=== PATIENT | female | born 1955 | race Caucasian/White ===

== ENCOUNTER → 2016-09-02 | Day surgery (SDC) | payer BC ==
[2016-08-23 09:01] VITALS: BMI 22.0
[~2016-09-02] VITALS: Ht 157.5 cm; Wt 54.5 kg
[~2016-09-02] MED LIST: ASPI81TA28 PO; CALC600T9 PO; FLAX12003 PO; LIDOCAINE HCL 2% 2 ML VIAL (20MG/ML) ONE; MULT-506 PO; ONDANSETRON INJ 2 MG/ML 2 ML VIAL ONE; PROPOFOL IV EMULSION 10 MG/ML 20 ML VIAL IV ONE; SODIUM CHLORIDE 0.9% 500ML 500 ML IV ONE; [UNRECOGNIZED DRUG - OTHER] PO
[2016-09-02 10:20] VITALS: Ht 157.5 cm; Wt 54.5 kg
--- NOTE | 2016-09-02 10:40 | Endo History and Physical ---
History & Physical Date of Service: Sep 02, 2016. Chief Complaint: screening Referring Physician: Dr. Freire History of Present Illness 61 yo CF who presents for screening colonoscopy. Past Surgical History Hx Cardiac Surgery: No Hx Internal Defibrillator: No Hx Pacemaker: No Hx Abdominal Surgery: Yes (TUBAL LIGATION, PARTIAL D&C) Hx of Implantable Prosthesis: No Hx Post-Op Nausea and Vomiting: No Hx Cancer Surgery: No Hx Thoracic Surgery: No Hx Orthopedic: No Hx Urinary Tract Surgery: No Family History IBD Social History Smoking Status: Never Smoker Hx Substance Use: No Hx Alcohol Use: No Allergies Coded Allergies: Erythromycin (Verified Allergy, Unknown, SWELLING AT LOCAL INJECTION SITE , 09/02/16) Gabapentin (Verified Allergy, Unknown, SLEEPINESS, 08/23/16) Oxcarbazepine (Verified Allergy, Unknown, SHUT DOWN KIDNEY FUNCTION, ) Scallop (Verified Allergy, Unknown, ANAPHYLAXIS, 09/02/16) Topiramate (Unverified Allergy, Unknown, PT UNSURE REACTION, 08/23/16) Valproic Acid (Verified Allergy, Unknown, SLEEPINESS, 08/23/16) Uncoded Allergies: DEPACOT (Allergy, Unknown, swelling and rash, 09/02/16) Current Medications Reported Home Medications Medications Dose Route/Sig Max Daily Dose Days Date Category [Clarkpina Layton] 1 Tab PO BID 08/23/16 Reported Multivitamin (Multivitamins) Tab 1 Tab PO QAM 08/23/16 Reported Flaxseed Oil (Flaxseed (Linseed)) 1 Cap Cap 1 Cap PO QAM 08/23/16 Reported Calcium + D (Calcium Carbonate-Vitamin D) 1 Tab Tab 1 Tab PO QAM 08/23/16 Reported Aspirin Ec (Aspirin) 81 Mg Tab 81 Mg PO QAM 08/23/16 Reported Vital Signs Weight (Kilograms): 54.55 Height (Feet): 5 Height (Inches): 2 Date Time Temp Pulse Resp B/P Pulse Ox O2 Delivery O2 Flow Rate FiO2 09/02/16 10:28 36.7 69 20 103/61 99 Room Air Physical Exam General Appearance: WD/WN, no apparent distress Respiratory/Chest: Auscultation: breath sounds normal Cardiovascular: Heart Auscultation: RRR Abdomen: Bowel Sounds: normal Inspection & Palpation: soft, non-distended, no tenderness, guarding & rebound Assessment and Plan Assessment: 61 yo CF who presents for screening colonoscopy. Plan: Proceed with colonoscopy.
--- NOTE | 2016-09-02 11:08 | GI REPORT ---
Procedure Date: 09/02/2016 10:41 AM Procedure: Colonoscopy Indications: Screening for colorectal malignant neoplasm Medicines: Monitored Anesthesia Care Complications: No immediate complications. Estimated Blood Loss: Estimated blood loss: none. Procedure: Pre-Anesthesia Assessment: - Prior to the procedure, a History and Physical was performed, and patient medications and allergies were reviewed. The patient's tolerance of previous anesthesia was also reviewed. The risks and benefits of the procedure and the sedation options and risks were discussed with the patient. All questions were answered, and informed consent was obtained. Prior Anticoagulants: The patient has taken aspirin, last dose was 1 day prior to procedure. ASA Grade Assessment: II - A patient with mild systemic disease. After reviewing the risks and benefits, the patient was deemed in satisfactory condition to undergo the procedure. After I obtained informed consent, the scope was passed under direct vision. Throughout the procedure, the patient's blood pressure, pulse, and oxygen saturations were monitored continuously. The Scope was introduced through the anus and advanced to the terminal ileum. The colonoscopy was performed without difficulty. The patient tolerated the procedure well. The quality of the bowel preparation was good. The terminal ileum, ileocecal valve, appendiceal orifice, and rectum were photographed. Findings: A 6 mm polyp was found in the ascending colon. The polyp was sessile. The polyp was removed with a hot snare. Resection and retrieval were complete. Impression: - One 6 mm polyp in the ascending colon, removed with a hot snare. Resected and retrieved. Recommendation: - Resume previous diet. - Continue present medications. - Repeat colonoscopy for surveillance based on pathology results. - Return to primary care physician as previously scheduled. Sarthak Alonzo, DO 09/02/2016 11:08:12 AM This report has been signed electronically. Note Initiated On: 09/02/2016 10:41 AM I attest to the content of the Intraoperative Record and orders documented therein, exceptions below
--- NOTE | 2016-09-02 11:09 | Discharge Instructions ---
Endoscopy Patient Instructions Date / Procedure(s) Performed Sep 02, 2016. Colonoscopy Allergy Information Coded Allergies: Erythromycin (Verified Allergy, Unknown, SWELLING AT LOCAL INJECTION SITE , 09/02/16) Gabapentin (Verified Allergy, Unknown, SLEEPINESS, 08/23/16) Oxcarbazepine (Verified Allergy, Unknown, SHUT DOWN KIDNEY FUNCTION, ) Scallop (Verified Allergy, Unknown, ANAPHYLAXIS, 09/02/16) Topiramate (Unverified Allergy, Unknown, PT UNSURE REACTION, 08/23/16) Valproic Acid (Verified Allergy, Unknown, SLEEPINESS, 08/23/16) Uncoded Allergies: DEPACOT (Allergy, Unknown, swelling and rash, 09/02/16) Discharge Date / Findings Sep 02, 2016. Colon polyp Medication Instructions OK to resume all medications today as prescribed. Reported Home Medications Medications Dose Route/Sig Max Daily Dose Days Date Category [Tara Traylor] 1 Tab PO BID 08/23/16 Reported Multivitamin (Multivitamins) Tab 1 Tab PO QAM 08/23/16 Reported Flaxseed Oil (Flaxseed (Linseed)) 1 Cap Cap 1 Cap PO QAM 08/23/16 Reported Calcium + D (Calcium Carbonate-Vitamin D) 1 Tab Tab 1 Tab PO QAM 08/23/16 Reported Aspirin Ec (Aspirin) 81 Mg Tab 81 Mg PO QAM 08/23/16 Reported Provider Instructions Activity Restrictions - No exercising or heavy lifting for 24 hours. - Do not drink alcohol the day of the procedure. - Do not drive a car or operate machinery until the day after the procedure. - Do not make any important decisions or sign important papers in 24 hours after the procedure. Following Day: - Return to full activity which may include returning to work/school. Diet Start your diet with liquids and light foods (jello, soup, juice, toast). Then eat your usual diet if not nauseated. Treatment For Common After Affects For mild abdominal pain, bloating, or excessive gas: - Rest - Eat lightly - Lie on right side Follow-Up Information Follow-up with Dr. Freire as scheduled Anesthesia Information What You Should Know You have had a procedure that required some medicine to reduce anxiety and discomfort. This treatment is called moderate sedation. After receiving the treatment, you may be sleepy, but you will be able to breathe on your own. The effects of the treatment may last for several hours. Follow these instructions along with Activity/Diet recommendations noted above: * Do NOT do anything where dizziness or clumsiness would be dangerous. * Rest quietly at home today, then you can be up and about tomorrow. * Have a responsible person stay with you the rest of today. * You may have had an I.V. today. If so, you may take the dressing off later today. Recommendations Call your doctor if: * Trouble breathing * Continuous vomiting for more than 24 hours * Temperature above 101 degrees * Severe abdominal pain or bloating * Pain not relieved by pain medicine ordered * There is increased drainage or redness from any incision * A large amount of rectal bleeding greater than 2-3 tablespoons. (If you had a polyp/s removed or have hemorrhoids, a small amount of blood - from the rectum is to be expected.) * You have any unanswered questions or concerns. IN THE EVENT OF A SERIOUS EMERGENCY, GO TO THE NEAREST EMERGENCY ROOM Your discharge instructions were prepared by provider Sarthak Alonzo. Patient Instructions Signature Page Yanique Bradshaw Patient (or Guardian) Signature/Date: I have read and understand the instructions given to me by my caregivers. Caregiver/RN/Doctor Signature/Date: The above-named patient and/or guardian has received patient instructions on this date. + Original Patient Signature Page (only) stays with chart. Please make copy for patient.
--- NOTE | 2016-09-02 11:33 | Anesthesiology Progress Note ---
Anesthesia Post Op Note Date & Time Sep 02, 2016 at 11:33 Vital Signs Pain Intensity: 0 Vital Signs Past 12 Hours Date Time Temp Pulse Resp B/P Pulse Ox O2 Delivery O2 Flow Rate FiO2 09/02/16 11:19 71 16 91/59 99 Room Air 09/02/16 11:04 16 89/49 99 Room Air 09/02/16 10:28 36.7 69 20 103/61 99 Room Air Notes Mental Status: alert / awake / arousable, participated in evaluation Pt Amnestic to Procedure: Yes Nausea / Vomiting: adequately controlled Pain: adequately controlled Airway Patency, RR, SpO2: stable & adequate BP & HR: stable & adequate Hydration State: stable & adequate Anesthetic Complications: no major complications apparent
[2016-09-02 11:34] VITALS: BP 96/59; PULSE 66; O2SAT 99
== END | disposition home or self-care (01) ==
LOC: C.GI 10:03
PROVIDERS: ATTEND Internal Medicine
DX: Z12.11 Encounter for screening for malignant neoplasm of colon (principal); J45.909 Unspecified asthma, uncomplicated; D12.2 Benign neoplasm of ascending colon; M19.90 Unspecified osteoarthritis, unspecified site; Z98.51 Tubal ligation status; Z88.1 Allergy status to other antibiotic agents; Z68.22 Body mass index [BMI] 22.0-22.9, adult